=== PATIENT | female | born 1970 | race Caucasian/White ===

== ENCOUNTER → 2019-07-17 | Outpatient (CLI) | payer OTHER ==
[2019-07-18 15:43] LABS: Stool Occult Bld Immuno 1 Negative (NEGATIVE)
== END ==
LOC: LAB SHORT 08:15 → OLS 08:15
PROVIDERS: Family Medicine
DX: Z12.11 Encounter for screening for malignant neoplasm of colon (principal); E78.5 Hyperlipidemia, unspecified; R53.83 Other fatigue; R79.9 Abnormal finding of blood chemistry, unspecified
CPT/HCPCS: 82274

== ENCOUNTER 2019-10-11 19:13 | Emergency (ER) | payer OTHER ==
[~2019-10-11] VITALS: Ht 172.7 cm; Wt 97.5 kg
== END 2019-10-11 23:13 | disposition home or self-care (01) ==
LOC: ER 19:13
DX: S91.312A Laceration without foreign body, left foot, initial encounter (principal); Z23 Encounter for immunization; W25.XXXA Contact with sharp glass, initial encounter
CPT/HCPCS: 12001; 90471; 90714; 99282-25